=== PATIENT | female | born 1965 | race African-American/Black ===

== ENCOUNTER 2021-06-28 21:39 | Emergency (ER) | payer MEDICAID ==
[~2021-06-28] VITALS: Ht 165.1 cm; Wt 83.5 kg
[2021-06-28 21:44] VITALS: BP_SYST 171
[2021-06-28] MEDS ORDERED: LOSA50TA3 PO (23:08)
[2021-06-28 23:18] VITALS: BP_SYST 154
== END 2021-06-28 23:18 | disposition home or self-care (01) ==
LOC: SED 21:39
DX: S09.90XA Unspecified injury of head, initial encounter (principal); I10 Essential (primary) hypertension; Z79.899 Other long term (current) drug therapy; W18.39XA Other fall on same level, initial encounter; Y93.89 Activity, other specified; Y92.89 Other specified places as the place of occurrence of the external cause; Y99.8 Other external cause status
CPT/HCPCS: 70450-TC; 76376; 81025; 99284